=== PATIENT | male | born 1985 | race Caucasian/White ===

== ENCOUNTER 2020-12-20 13:42 | Emergency (ER) | payer SELFPAY ==
[~2020-12-20 13:42] MED LIST: ACETAMINOPHEN500 M1 PO; BENADRYL25 MG PO; CARAFATE1 GM PO; FIORICET1 EACH PO; FLONASE ALLER15.8 ML; PROTONIX 40MG T40 MG PO; TESSALON PERLE100 MG PO; ZPAK PO
[2020-12-20 18:12] LABS: BASOPHIL 0.2 % (0-2); EOSINOPHIL 0 % (0-5); HCT 48.1 % (42.0-52.0); HGB 16.3 g/dl (13.2-18.0); LYMPHOCYTE 6.6 % (15-48); MCH 31.1 pg (25.0-31.0); MCHC 33.9 g/dL (32.0-36.0); MCV 91.8 fL (78.0-100.0); MONOCYTE 2.5 % (0-12); MPV 10.2 fL (6.0-9.5); NRBC 0; PLT 292 K/uL (150-400); RBC 5.24 M/uL (4.70-6.00); RDW 12.1 % (11.5-14.0); WBC 14.2 K/uL (4.0-10.5)
[2020-12-20 18:13] LABS: NEUTROPHIL 90.1 % (41-80)
[2020-12-20 18:24] LABS: ALBUMIN 4.2 g/dL (3.4-5.0); BUN/CREAT RATIO (CALC) 19.2 RATIO; CREATININE 0.99 mg/dL (0.67-1.17); POTASSIUM 4.5 mmol/L (3.5-5.1); TOTAL PROTEIN 8.2 g/dL (6.4-8.2)
[2020-12-20 19:58] LABS: CORONAVIRUS 2019 SARS-COV-2 NEGATIVE (NEGATIVE); INFLUENZA A NAA NEGATIVE (NEGATIVE)
[2020-12-20] MEDS ORDERED: ZOFRAN4 M1 PO (21:15)
== END 2020-12-20 21:46 | disposition home or self-care (01) ==
LOC: FER 13:42
PROVIDERS: Internal Medicine
DX: R11.2 Nausea with vomiting, unspecified (principal); R19.7 Diarrhea, unspecified; Z20.822 Contact with and (suspected) exposure to COVID-19
CPT/HCPCS: 36415; 80053; 83690; 85025; J2405; J7120; U0002

== ENCOUNTER 2021-02-04 10:44 | Emergency (ER) | payer SELFPAY ==
[~2021-02-04 10:44] MED LIST changes: +ZOFRAN4 M1 PO
[2021-02-04 12:29] LABS: BASOPHIL 0.3 % (0-2); EOSINOPHIL 2.4 % (0-5); HCT 48.8 % (42.0-52.0); HGB 16.3 g/dl (13.2-18.0); LYMPHOCYTE 19.3 % (15-48); MCHC 33.4 g/dL (32.0-36.0); MONOCYTE 5.6 % (0-12); NEUTROPHIL 72.2 % (41-80); NRBC 0; PLT 278 K/uL (150-400); RBC 5.25 M/uL (4.70-6.00); RDW 12.2 % (11.5-14.0); WBC 9.1 K/uL (4.0-10.5)
[2021-02-04 13:57] LABS: ALBUMIN 3.7 g/dL (3.4-5.0); BILIRUBIN - TOTAL 0.9 mg/dL (0.2-1.0); BUN/CREAT RATIO (CALC) 9.7 RATIO; CREATININE 1.03 mg/dL (0.67-1.17); GLOBULIN (CALCULATION) 3.8 g/dL; POTASSIUM 4.4 mmol/L (3.5-5.1); TOTAL PROTEIN 7.5 g/dL (6.4-8.2)
[2021-02-04] MEDS ORDERED: VENTOLIN HFA IN18 GM INH (16:01)
[2021-02-04] MEDS ORDERED: DOXYCYCLINE HY100 MG PO (16:01)
[2021-02-04] MEDS ORDERED: MUCINEX 600MG600 MG PO (16:01)
== END 2021-02-04 16:08 | disposition home or self-care (01) ==
LOC: FER 10:44
PROVIDERS: Emergency Medicine
DX: J40 Bronchitis, not specified as acute or chronic (principal); Z20.822 Contact with and (suspected) exposure to COVID-19
CPT/HCPCS: 36415; 71046; 80053; 85025; J7030; U0002

== ENCOUNTER 2021-03-18 15:20 | Emergency (ER) | payer SELFPAY ==
[~2021-03-18 15:20] MED LIST changes: +DOXYCYCLINE HY100 MG PO; +MUCINEX 600MG600 MG PO; +VENTOLIN HFA IN18 GM INH
[2021-03-18] MEDS ORDERED: VENTOLIN HFA IN18 GM INH ×2 (18:31→18:33)
[2021-03-18] MEDS ORDERED: MEDROL 4MG DOSEP4 MG PO ×2 (18:31→18:33)
== END 2021-03-18 18:38 | disposition home or self-care (01) ==
LOC: FER 15:20
DX: U07.1 COVID-19 (principal); J45.909 Unspecified asthma, uncomplicated
CPT/HCPCS: 99284; U0002